=== PATIENT | female | born 1955 | race Caucasian/White ===

== ENCOUNTER 2016-09-17 12:08 | Observation (INO) ==
[2016-09-17] MEDS ORDERED: Aspirin 81 MG TAB.CHEW PO ONE (12:44)
[2016-09-17] MEDS ORDERED: Nitroglycerin 0.4 MG TAB.SUBL SL PRN (12:44)
[2016-09-17 13:27] LABS: Basophils % 0.5 %; Eosinophils # 0.1 K/mcL (0.0-0.6); Hematocrit 42.5 % (35.3-44.9); Hemoglobin 14.1 g/dL (11.5-15.4); Immature Granulocytes % 0.2 % (0-4); Lymphocytes % 33.6 %; Mean Corpuscular HGB Conc 33.2 g/dL (31.6-35.5); Mean Corpuscular Hemoglobin 28.5 pg (28.0-33.3); Mean Corpuscular Volume 85.9 fL (83.0-100.0); Monocytes # 0.5 K/mcL (0.0-1.3); Monocytes % 8.8 %; Neutrophils # 3.3 K/mcL (1.6-8.9); Platelet Count 251 K/mcL (140-400); Red Blood Count 4.95 M/mcL (3.82-4.97); Red Cell Distribution Width 12.9 % (11.5-14.5); Segmented Neutrophils % 54.9 %
--- NOTE | 2016-09-17 13:44 | Emergency Department Note ---
Disposition Clinical Impression: Chest pain Disposition: Admitted As Inpatient Condition: Good Chest Pain HPI - General Chief Complaint: ED Chest Pain Stated Complaint: chest pain Time Seen by Provider: 09/17/16 12:15 Source: patient Limitations: no limitations Vital Signs Reviewed: Yes Nursing Notes Reviewed: Yes - History of Present Illness HPI Narrative: Presents to clinic chest pain that started around 11:00 while in [employer]. Patient describes the pain as a pressure and she states that it is in the left side of her neck and her left shoulder. Currently the pressure chest has resolved but she still has some tingling in her left hand and into her neck. Patient denies shortness of breath denies fevers or chills. Patient denies injury denies prior history of similar symptoms. Patient denies any aggravating alleviating factors associated. Severity scale (1-10): 0 - Related Data Home Medications Medication Instructions Recorded Confirmed Aspirin 04/14/16 Bentyl 04/14/16 04/14/16 Crestor 04/14/16 Previous Rx's Medication Instructions Recorded Benzonatate [Tessalon] 200 mg PO TID PRN #30 capsule 04/14/16 Cephalexin [Keflex] 500 mg PO QID #40 capsule 04/14/16 GuaiFENesin ER [Mucinex] 1,200 mg PO BID #20 tbbp.12hr 04/14/16 Allergies Allergy/AdvReac Type Severity Reaction Status Date / Time prochlorperazine Allergy Anaphylaxis Verified 08/26/15 15:53 [From Compazine] Sulfa (Sulfonamide Allergy Hives Verified 08/26/15 15:53 Antibiotics) All systems ED: reviewed and negative except as stated. Chest Pain PMH - Past Medical History Medical history: Reports: hyperlipidemia, hypertension, other Psychiatric history: Reports: no psych history - Social History Smoking Status: Never smoker Alcohol use: Reports: none Drug use: Reports: none Physical Exam - General Limitations: no limitations General appearance: alert - Head Head exam: atraumatic, normocephalic, normal inspection - Eye Eye exam: Present: normal appearance, PERRL, EOMI - ENT ENT exam: normal exam - Neck Neck exam: Present: normal inspection, full ROM, trachea midline - Chest Chest inspection: Present: normal inspection, symmetric chest wall rise - Respiratory Respiratory exam: Present: normal lung sounds bilaterally - Cardiovascular Cardiovascular exam: Present: regular rate, normal rhythm, normal heart sounds - Abdominal Exam Abdominal exam: Present: soft, Non-Tender. Absent: tenderness, distention, guarding, rebound, rigidity - Extremities Exam Extremities exam: Present: normal inspection, full ROM. Absent: tenderness, pedal edema - Back Exam Back exam: Present: normal inspection, full ROM. Absent: tenderness - Neurological Exam Neurological exam: Present: alert, oriented X3 - Psychiatric Psychiatric exam: Present: normal affect, normal mood - Skin Skin exam: Present: warm, dry, intact, normal color Course Course Narrative: Patient workup has been unremarkable. Discussed this patient with the hospitalist service and will admit patient due to her risk factors. Hospitalist service graciously accepted the patient to the service Vital Signs Temperature 97.3 F L 09/17/16 12:17 Pulse Rate 78 09/17/16 12:17 Respiratory Rate 16 09/17/16 12:17 Blood Pressure 162/92 09/17/16 12:17 O2 Sat by Pulse Oximetry 99 09/17/16 12:17 Temperature 97.3 F L 09/17/16 12:17 Pulse Rate 63 09/17/16 12:56 Respiratory Rate 14 09/17/16 12:56 Blood Pressure 141/84 09/17/16 12:56 O2 Sat by Pulse Oximetry 98 09/17/16 12:56 Oxygen Delivery Oxygen Delivery Room Air Chest Pain - Differential Diagnosis Likely: pneumothorax, stable angina, atypical chest pain, st elevation myocardial infraction - Lab Data Lab results reviewed: Yes I reviewed the patient's lab results. Result diagrams: 09/17/16 13:16 09/17/16 13:16 Lab Results 09/17/16 09/17/16 09/17/16 Range/Units 13:16 13:16 13:16 WBC 6.0 (4.3-11.1) K/mcL RBC 4.95 (3.82-4.97) M/mcL Hgb 14.1 (11.5-15.4) g/dL Hct 42.5 (35.3-44.9) % MCV 85.9 (83.0-100.0) fL MCH 28.5 (28.0-33.3) pg MCHC 33.2 (31.6-35.5) g/dL RDW 12.9 (11.5-14.5) % Plt Count 251 (140-400) K/mcL MPV 9.0 L (9.4-12.4) fL Immature Gran % 0.2 (0-4) % Seg Neutrophils % 54.9 % Lymphocytes % 33.6 % Monocytes % 8.8 % Eosinophils % 2.0 % Basophils % 0.5 % Neutrophils # 3.3 (1.6-8.9) K/mcL Lymphocytes # 2.0 (0.6-4.6) K/mcL Monocytes # 0.5 (0.0-1.3) K/mcL Eosinophils # 0.1 (0.0-0.6) K/mcL Basophils # 0.0 (0.0-0.2) K/mcL APTT 29.1 (26.0-36.0) Seconds Sodium 141 (136-145) mEq/L Potassium 4.3 (3.5-4.5) mEq/L Chloride 112 H (98-109) mEq/L Carbon Dioxide 23 (19-29) mEq/L BUN 17 (7-20) mg/dL Creatinine 0.73 (0.57-1.11) mg/dL Est GFR ( Amer) > 60 (> 60) Est GFR (Non-Af Amer) > 60 (> 60) BUN/Creatinine Ratio 23 (6-26) Glucose 95 (70-99) mg/dL Calculated Osmolality 293 (280-300) Calcium 9.3 (8.6-10.8) mg/dL Total Bilirubin 0.5 (0.2-1.2) mg/dL AST 20 (5-34) Units/L ALT 19 (0-55) Units/L Alkaline Phosphatase 91 (38-126) Units/L Troponin I (0-0.03) ng/mL Serum Total Protein 6.5 (6.0-8.3) g/dL Albumin 4.1 (3.5-5.0) g/dL Globulin 2.4 (2.4-3.5) g/dL Albumin/Globulin Ratio 1.7 (1.1-2.2) 09/17/16 Range/Units 13:16 WBC (4.3-11.1) K/mcL RBC (3.82-4.97) M/mcL Hgb (11.5-15.4) g/dL Hct (35.3-44.9) % MCV (83.0-100.0) fL MCH (28.0-33.3) pg MCHC (31.6-35.5) g/dL RDW (11.5-14.5) % Plt Count (140-400) K/mcL MPV (9.4-12.4) fL Immature Gran % (0-4) % Seg Neutrophils % % Lymphocytes % % Monocytes % % Eosinophils % % Basophils % % Neutrophils # (1.6-8.9) K/mcL Lymphocytes # (0.6-4.6) K/mcL Monocytes # (0.0-1.3) K/mcL Eosinophils # (0.0-0.6) K/mcL Basophils # (0.0-0.2) K/mcL APTT (26.0-36.0) Seconds Sodium (136-145) mEq/L Potassium (3.5-4.5) mEq/L Chloride (98-109) mEq/L Carbon Dioxide (19-29) mEq/L BUN (7-20) mg/dL Creatinine (0.57-1.11) mg/dL Est GFR ( Amer) (> 60) Est GFR (Non-Af Amer) (> 60) BUN/Creatinine Ratio (6-26) Glucose (70-99) mg/dL Calculated Osmolality (280-300) Calcium (8.6-10.8) mg/dL Total Bilirubin (0.2-1.2) mg/dL AST (5-34) Units/L ALT (0-55) Units/L Alkaline Phosphatase (38-126) Units/L Troponin I 0.00 (0-0.03) ng/mL Serum Total Protein (6.0-8.3) g/dL Albumin (3.5-5.0) g/dL Globulin (2.4-3.5) g/dL Albumin/Globulin Ratio (1.1-2.2) - Radiology Data Radiology results reviewed: Yes I reviewed the patient's radiology results. Chest X-Ray 09/17/16 12:43 IMPRESSION: No evidence for acute cardiopulmonary process. D/ / Amish Mathis MD / Amish Mathis MD Interpreting Provider: Amish Mathis MD - EKG Data EKG attestation: Yes I reviewed and interpreted this EKG. EKG shows normal: sinus rhythm Rate: bradycardia Rhythm: NSR
[2016-09-17 13:48] LABS: Alanine Aminotransferase 19 Units/L (0-55); Albumin 4.1 g/dL (3.5-5.0); Albumin/Globulin Ratio 1.7 (1.1-2.2); Alkaline Phosphatase 91 Units/L (38-126); Aspartate Amino Transferase 20 Units/L (5-34); BUN/Creatinine Ratio 23 (6-26); Bilirubin,Total 0.5 mg/dL (0.2-1.2); Blood Urea Nitrogen 17 mg/dL (7-20); Calcium 9.3 mg/dL (8.6-10.8); Carbon Dioxide 23 mEq/L (19-29); Chloride 112 mEq/L (98-109); Globulin 2.4 g/dL (2.4-3.5); Glucose 95 mg/dL (70-99); Osmolality,Calculated 293 (280-300); Potassium 4.3 mEq/L (3.5-4.5); Sodium 141 mEq/L (136-145); Total Protein 6.5 g/dL (6.0-8.3); eGFR For African Americans > 60 (> 60); eGFR For Non-African Americans > 60 (> 60)
[2016-09-17] MEDS ORDERED: *HR* HYDROcodone/Acet 5/325 mg TABLET PO PRN (15:54)
[2016-09-17] MEDS ORDERED: Naloxone 0.4 MG/ML INJ IVP PRN (15:54)
[2016-09-17] MEDS ORDERED: Ondansetron 4 MG/2 ML VIAL IVP PRN (15:54)
[2016-09-17] MEDS ORDERED: Acetaminophen 325 MG TABLET PO PRN (15:54)
--- NOTE | 2016-09-17 18:40 | Internal Med History&Physical ---
Date of Encounter: 09/17/16 Time of Encounter: 18:34 Assessment and Plan (1) Chest pain Current visit: Yes Status: Acute 1 patient experienced midsternal chest pain radiating to neck and back she did take some nitroglycerin which did ease her pain resolved after approximately 15 minutes. Patient is a history of hypertension hyperlipidemia. She did undergo a stress test last year which was inconclusive due to artifact. First cardiac enzymes are negative. We will continue to cycle cardiac troponins. 2 nitroglycerin as needed for chest pain 3 cardiac monitoring EKG 4 oxygen as needed to maintain SPO2 greater than 92% 5 to make patient nothing by mouth after midnight and no caffeine for pharmacological cardiac stress and a.m. 6 continue with aspirin and statin 7 lipid profile Qualifiers: Chest pain type: unspecified Qualified Code(s): R07.9 - Chest pain, unspecified (2) Hyperlipidemia Current visit: Yes Status: Acute 1 we will continue with statin 2 lipid profile Qualifiers: Hyperlipidemia type: unspecified Qualified Code(s): E78.5 - Hyperlipidemia , unspecified (3) HTN (hypertension) Current visit: Yes Status: Acute 1 patient has not been on any antihypertensives. We will start low dose lisinopril Qualifiers: Hypertension type: essential hypertension Qualified Code(s): I10 - Essential (primary) hypertension Internal Medicine - H&P: HPI Chief complaint: Chest pain Admitted From: Emergency Dept Plans for Post Hospital Care: Home History of present illness: Ms. Amezquita is a 61 year old female past history of hypertension hyperlipidemia she began to experience midsternal burning 10 /10 chest pain which radiated to the left side of her neck and to her left shoulder. She states that the pain makes it difficult for her to breathe she did feel nauseated. The pain was aggravated with inspiration. She did take one nitroglycerin which did ease her pain and after approximately 15 minutes the pain resolved on its own. She was brought to the ER for further evaluation. To the records, the patient's vital signs were stable chest x-ray was obtained which showed no acute process. EKG sinus bradycardia with left axis deviation with no significant changes from previous EKG. Lab work is unremarkable first set cardiac troponins were negative. Patient was admitted for further workup and evaluation. Presently patient denies any chest pain or shortness of breath. Lung sounds are clear to auscultation heart sounds with S1-S2 no gallops rubs murmurs clicks noted. She is hemodynamically stable at this time It appears the patient did undergo a stress test proximal one year ago results were inconclusive related to artifact was advised to follow-up with nuclear stress. However patient never did follow- up because she did not experience any more chest pain. Past Med Surg Social Fam HX - Past Medical History Medical history: hyperlipidemia, hypertension Psychiatric history: no psych history - Past Surgical History Surgical History: hysterectomy - Social History Smoking Status: Never smoker Smokeless Tobacco Status: No Alcohol use: none Drug use: none - Family History Mother Hx Family Cardiac Disorders: Yes ([place]) Hx Family Neurologic Disorders: Yes ([place]) Father Hx Family Cardiac Disorders: Yes ([place]) Hx Family Neurologic Disorders: Yes ([place]) Internal Medicine - H&P: Meds Aspirin [Lo-Dose Aspirin EC] 81 mg PO DAILY 09/17/16 [History] Dicyclomine [Bentyl] 20 mg PO BID 09/17/16 [History] Loratadine [Allergy Relief] 10 mg PO DAILY 09/17/16 [History] Rosuvastatin Calcium [Rosuvastatin Calcium] 5 mg PO DAILY 09/17/16 [History] Allergies prochlorperazine [From Compazine] Allergy (Verified 08/26/15 15:53) Anaphylaxis Sulfa (Sulfonamide Antibiotics) Allergy (Verified 08/26/15 15:53) Hives All Systems PM: A 10-system review of systems was performed and is negative for pertinent findings except as documented above in the HPI. - Constitutional Constitutional: no chills, no fever(s), no night sweats - EENT Eyes: no change in vision, no discharge, no pain, no photophobia Ears: no ear discharge, no ear pain, no tinnitus Nose, mouth and throat: nasal congestion, nasal discharge, no neck pain, no sore throat - Cardiovascular Cardiovascular ROS IM: no chest pain, no diaphoresis, no dyspnea, no lightheadedness, no palpitations, no syncope - Respiratory Respiratory: no cough, no dyspnea, no wheezing, no excessive phlegm production - Gastrointestinal Gastrointestinal: no abdominal pain, no diarrhea, no hematemesis, no hematochezia, no melena, no nausea, no vomiting - Genitourinary Genitourinary: no change in urinary stream, no dysuria, no flank pain, no hematuria - Musculoskeletal Musculoskeletal ROS IM: no numbness, no tingling - Integumentary Integumentary IM: no rash, no unusual bruising - Neurological Neurological ROS: no confusion, no convulsions, no focal weakness, no numbness, no tingling, no tremor(s) - Constitutional Vitals: Temp Pulse Resp BP Pulse Ox 97.9 F 58 16 126/78 97 09/17/16 16:36 09/17/16 16:36 09/17/16 16:36 09/17/16 16:36 09/17/16 16:36 General appearance: Present: A&O X 3, answers questions appropriately - Head Head exam: Present: atraumatic, normocephalic - Eye Eye exam: Present: PERRL, conjuntiva pink, sclera anicteric Pupils: Present: PERRL - Neck Neck exam general surgery: Present: supple, trachea midline. Absent: lymphadenopathy - Respiratory Respiratory exam: Present: CTAB. Absent: accessory muscle use, rales, rhonchi, wheezes - Cardiovascular Cardiovascular exam: Present: RRR, +S1, +S2. Absent: diastolic murmur, gallop, rubs, systolic murmur - GI/Abdominal GI/Abdominal exam: Present: normal bowel sounds, soft, no peritoneal signs. Absent: distended, tenderness - Extremities Exam Extremities exam: Present: warm, radial pulses palpable and symetrical. Absent : calf tenderness, cyanotic, pedal edema Internal Med - H&P Results - Labs CBC & Chem 7: 09/17/16 13:16 09/17/16 13:16 - EKG Data EKG shows normal: sinus rhythm Rate: bradycardia - EKG Data Prior EKG available for review: yes When compared to previous EKG: there is no significant change - Diagnostic Studies Other Images Additional comments: Chest X-Ray 09/17/16 12:43 IMPRESSION: No evidence for acute cardiopulmonary process. D/ / Amish Mathis MD / Amish Mathis MD Interpreting Provider: Amish Mathis MD - VTE Reasons for not Prescribing Prophylaxis: Treatment not Indicated - Low risk for VTE
[2016-09-18 00:40] LABS: Basophils % 0.4 %; Eosinophils # 0.2 K/mcL (0.0-0.6); Eosinophils % 2.8 %; Hemoglobin 13.1 g/dL (11.5-15.4); Immature Granulocytes % 0.3 % (0-4); Immature Platelets 1.2 % (1.1-6.1); Lymphocytes # 2.6 K/mcL (0.6-4.6); Lymphocytes % 38.9 %; Mean Corpuscular HGB Conc 32.8 g/dL (31.6-35.5); Mean Corpuscular Hemoglobin 28.6 pg (28.0-33.3); Mean Corpuscular Volume 87.3 fL (83.0-100.0); Mean Platelet Volume 9.3 fL (9.4-12.4); Monocytes # 0.6 K/mcL (0.0-1.3); Monocytes % 8.5 %; Neutrophils # 3.3 K/mcL (1.6-8.9); Platelet Count 255 K/mcL (140-400); Red Blood Count 4.58 M/mcL (3.82-4.97); Red Cell Distribution Width 12.8 % (11.5-14.5); Segmented Neutrophils % 49.1 %
[2016-09-18 00:58] LABS: BUN/Creatinine Ratio 23 (6-26); Blood Urea Nitrogen 19 mg/dL (7-20); Calcium 8.8 mg/dL (8.6-10.8); Carbon Dioxide 22 mEq/L (19-29); Chloride 111 mEq/L (98-109); Glucose 99 mg/dL (70-99); Osmolality,Calculated 292 (280-300); Sodium 140 mEq/L (136-145); eGFR For African Americans > 60 (> 60); eGFR For Non-African Americans > 60 (> 60)
[2016-09-18] MEDS ORDERED: Regadenoson 0.4 MG/5 ML SYRINGE IVP ONE (06:41)
--- NOTE | 2016-09-18 07:01 | Electrocardiograph Report ---
[place] [id number] Test Date: 2016-09-17 Pat Name: Connie Amezquita Department: 103 Room: 3B48 Gender: F Category Specialist: GREGORY : 1955 Requested By: Willam Snider Order Number: [id number] Reading MD: Dani Garvey MD Measurements Intervals [place] Rate: 57 P: -1 WA: 143 QRS: -39 QRSD: 89 T: 48 QT: 419 QTc: 413 Interpretive Statements SINUS BRADYCARDIA MARKED LEFT AXIS DEVIATION Poor R wave progression Electronically Signed On 09-18-2016 6:59:35 EDT by Dani Garvey MD
[2016-09-18] MEDS ORDERED: Aspirin Enteric Coated 81 MG Tablet PO SCH (09:00)
--- NOTE | 2016-09-18 10:27 | Nuclear Medicine Stress Report ---
Exercise Nuclear Stress Name: Connie Amezquita Date of Study: 09/18/2016 Date: 1955 Ht: 61.0 in Medical Record#: [id number] Age: 61 Wt: 155.0 lb Gender: Female Order #: [id number] Location: [facility] Room: [facility] Supervising Provider: Nadja Alexander CNP Reading Physician: Dani Garvey MD, [facility] Ordering Physician: Christina Mcdonough CNP Primary Care Physician: Jesse Keyes MD Stress Technologist: Sonia Hui RRT,[facility] Pattern Marking Supervisor: Bora Bhandari Indications: Chest Pain Impression: Perfusion imaging was negative for ischemia or infarct. SDS - 0 Exercise ECG was negative for ischemia, PVC during exercise and bigeminy during recovery Exercise capacity was average. Normal hemodynamic response. Patient had no chest pain with stress. Gated EF = >70%. The LV is not dilated. There is no evidence of TID. No high risk stress findings identified on this study History: Hypercholesteremia Stress Test Summary: Stress Test Type: Treadmill Protocol: Dani Baseline Information: Initial Heart Rate: 74 Blood Pressure: 142/88 Stress Information: Stress Time: 9 min 27 sec Test Terminated Due to (primary): Fatigue Maximum Blood Pressure: 176/80 Maximum Heart Rate: 156 Percent Maximum Heart Rate Achieved: 98 Double Product: [id number] METS Reached: 10.1 Symptoms: Fatigue Nuclear Summary: SPECT myocardial perfusion imaging using Tc99m Sestamibi given intravenously was performed at rest and following cardiac stress testing. The resting images were obtained following initial dose of 11.5 mCi. Following stress an additional dose of 35 mCi was given at peak exercise or 30 seconds post regadenoson infusion. Medication Given: Time Medication Dose Units Route Findings: Stress Note * Resting ECG demonstrated normal sinus rhythm. * Exercise ECG is negative for ischemia. * Occasional PVCs noted during stress. * Bigeminy noted during stress. * The exercise capacity was average. * Patient had no chest pain during stress. Hemodynamic responses * Normal hemodynamic responses to exercise. Study Quality * Study quality is average. Gated EF > 70% * Gated EF > 70%. Left Ventricle * The left ventricle is not dilated. NORMALS * Normal wall motion. * Normal segmental perfusion in stress. * All other segmental perfusion normal in rest. PERFUSION * PERFUSION Apical Perfusion Rest * The apex segment shows a moderate reduction in perfusion. TID * No evidence of transient ischemic dilatation. Updated by Dani Garvey MD, FACC on 09/18/2016 10:22:34 AM electronically signed on 09/18/2016 10:23:37 AM with status of Final
[2016-09-18 15:38] VITALS: BP 144/81
--- NOTE | 2016-09-18 16:16 | ECHO - Doppler Report ---
Echocardiogram Name: Connie Amezquita Date of Study: 09/18/2016 Date: 1955 Ht: 61.0 in Medical Record#: [id number] Age: 61 Wt: 155.0 lb Gender: Female BSA: 1.7 Order #: [id number] Location: [facility] Room #: [id number] Reading Physician: Dani Garvey MD, [facility] Retail Pharmacy Technician: Torres Hawkins Ordering Physician: Guerita Rubio CNP Primary Physician: Jesse Keyes MD Indications: Chest pain Impressions: LVEF 65-70%. Mild left ventricular diastolic dysfunction. No pulmonary hypertension. No significant valvular dysfunction. Left Ventricular Wall Motion: Rest Echo Findings The apex, apical inferior, mid inferior, basal inferior, apical anterior, mid anterior, basal anterior, apical septal, mid inferior septal, basal inferior septal, apical lateral, mid anterior lateral, basal anterior lateral, mid anterior septal, mid inferior lateral, basal anterior septal and basal inferior lateral farah were hyperkinetic. Findings: Study Quality * Technically adequate exam. Right Ventricle * Normal right ventricular structure and function. Left Atrium * Normal left atrial size. Right Atrium * Normal right atrial size. Interatrial Septum * No evidence of PFO by color Doppler. Aorta * Normally sized aortic root. Pericardium * The pericardium appears normal. ECG Findings * Normal sinus rhythm. Left Ventricle * Normal LV chamber size, wall thickness and function. * Mild left ventricular diastolic dysfunction. * LVEF 65-70%. Mitral Valve * Normal mitral valve structure. * Mild mitral regurgitation. * No mitral stenosis. Tricuspid Valve * Trace tricuspid regurgitation. * No tricuspid stenosis. * Estimated RVSP is 31 mmHg. * Estimated RA pressure is 3-5 mmHg. * No pulmonary hypertension. * Tricuspid valve not well visualized. Aortic Valve * No aortic regurgitation. * No aortic stenosis. * Aortic valve not well visualized. Pulmonic Valve * Pulmonic valve not well visualized. * No pulmonic regurgitation. * No pulmonic stenosis. History Hypertension Hypercholesteremia Family History of CAD Measurements: BP: 121/ 76 2D Normal Values RVIDd: 1.70 cm <2.7 cm IVSd: .80 cm 0.6 - 1.0 cm LVIDd: 4.20 cm 3.7 - 5.6 cm LVPWd: .80 cm 0.6 - 1.1 cm LVIDs: 3.50 cm 1.5 - 3.6 cm AO: 2.50 cm < 4.0 cm LA: 3.90 cm 2.0 - 4.0cm %FS: 16.70 cm >25 % LA volume: 44 Mitral Valve Peak E:.60 m/sec Peak A:.63 m/sec E/A Ratio:1 Peak E' Lat Robert:9.94 cm/s Peak E' Med Robert:7.41 cm/s E/E' Lat Ratio:6.1 E/E' Med Ratio:8.1 Tricuspid Valve TV Regurg Peak Grad: 31.00mmHg TV Regurg Peak Robert: 2.77m/sec Updated by Dani Garvey MD, FACC on 09/18/2016 4:11:17 PM electronically signed on 09/18/2016 4:12:22 PM with status of Final Wall Motion Fernandes: 1=Normal, 2=Hypokinesis, 3=Akinesis, 4=Dyskinesis, 5=Aneurysmal, 6=Hyperkinetic, X=Not Visualized (Blank)=Missing
--- NOTE | 2016-09-18 16:48 | Discharge Summary ---
Date of Encounter: 09/18/16 Time of Encounter: 16:00 - Discharge Diagnosis (1) Chest pain Priority: Primary Status: Resolved Comments: Patient denied chest pain or shortness of breath throughout this admission. Troponins negative. Stress is negative. ACS ruled out. Qualifiers: Chest pain type: unspecified Qualified Code(s): R07.9 - Chest pain, unspecified (2) Hyperlipidemia Priority: Secondary Status: Chronic Comments: Recommend continue statin and low-cholesterol diet Qualifiers: Hyperlipidemia type: unspecified Qualified Code(s): E78.5 - Hyperlipidemia , unspecified (3) HTN (hypertension) Priority: Secondary Status: Chronic Comments: Patient is not on any antihypertensive medications she was borderline hypertensive throughout this admission was started on low-dose lisinopril. Daily blood pressure checks at home, keep a log, and follow-up outpatient Qualifiers: Hypertension type: essential hypertension Qualified Code(s): I10 - Essential (primary) hypertension - Discharge Medications Prescriptions: Lisinopril [Zestril] 2.5 mg PO DAILY #15 tablet Home Medications: Aspirin [Lo-Dose Aspirin EC] 81 mg PO DAILY 09/17/16 [History] Dicyclomine [Bentyl] 20 mg PO BID 09/17/16 [History] Loratadine [Allergy Relief] 10 mg PO DAILY 09/17/16 [History] Rosuvastatin Calcium 5 mg PO DAILY 09/17/16 [History] Lisinopril [Zestril] 2.5 mg PO DAILY #15 tablet 09/18/16 [Rx] Allergies/Adverse Reactions: Allergies prochlorperazine [From Compazine] Allergy (Verified 08/26/15 15:53) Anaphylaxis Sulfa (Sulfonamide Antibiotics) Allergy (Verified 08/26/15 15:53) Hives Procedures/tests Complete & Pending: Procedures Performed prior 72 hours Category Date Time Status NM hope perf SPECT multi [NM] Routine Exams 09/17/16 05:54 Taken EV echocardiogram Routine Y 09/18/16 18:32 Completed SP exercise nuclear stress Routine Y 09/17/16 18:31 Completed Date of admission: 09/17/16 15:05 Primary care physician: Jesse Keyes MD Discharging clinician: Christina Mcdonough Anticipated date of discharge: 09/18/16 - Patient Status Disposition: Home, Self-Care Condition: Good Functional capacity at discharge: independent ambulation Overall status at discharge: patient is back to baseline - Discharge Instructions Follow Up With: Jesse Keyes MD [Primary Care Provider] - 09/27/16 1:00 pm Additional Instructions: Follow-up with primary care provider as scheduled, check blood pressure daily and keep a log - Diet and Activity Activity: increase activity as tolerated Diet: low fat, low cholesterol, low salt diet Hospital course: Ms. Amezquita is a 61 year old female with past medical history hypertension and hyperlipidemia presented to the emergency department chief complaint mid sternally located chest pain described as burning and radiating to the left side of her neck and left shoulder. Patient stating she had difficulty catching her breath and felt nauseated. Patient stating the pain was aggravated with inspiration. She took one nitroglycerin tablet which did ease her pain and approximately 15 minutes later the pain resolved on its own. Workup in the emergency department unremarkable. Chest x-ray negative. ECG revealing sinus bradycardia with left axis deviation without significant changes from prior EKGs. Patient was admitted to the hospitalist service for further evaluation and management. Troponins are negative. Exercise Nuclear stress test negative for ischemia or infarct and revealed an ejection fraction of 70%. Echocardiogram unremarkable. Patient denied chest pain or shortness of breath throughout this admission. Acute coronary syndrome ruled out. Patient stating that she is dealing with a lot of increased stress at home and thinks this may have been a causative factor for pain. She is also started on blood pressure medication during this visit she was instructed to check her blood pressure daily at home and follow up outpatient. She was discharged home in stable condition with close outpatient follow-up recommended. ITS Impressions Chest X-Ray 09/17/16 12:43 IMPRESSION: No evidence for acute cardiopulmonary process. D/ / Amish Mathis MD / Amish Mathis MD Interpreting Provider: Amish Mathis MD Echocardiogram impressions: LVEF 65-70%. Mild left ventricular diastolic dysfunction. No pulmonary hypertension. No significant valvular dysfunction. Exercise nuclear stress test impression: Perfusion imaging was negative for ischemia or infarct. SDS-0. Exercise ECG was negative for ischemia, PVC during exercise and bigeminy during recovery. Exercise capacity was average. Normal hemodynamic response. Patient had no chest pain with stress. Gait ejection fraction greater than 70%. The LV is not dilated. There is no evidence of TID. No high risk stress findings identified on the study. - Time Spent with Patient Total time spent providing and/or coordinating discharge services: - Constitutional Vitals: Temp Pulse Resp BP Pulse Ox 97.6 F 73 14 144/81 95 09/18/16 15:35 09/18/16 15:35 09/18/16 15:35 09/18/16 15:35 09/18/16 15:35 General appearance: Present: A&O X 3, pleasant, no acute distress, answers questions appropriately - Head Head exam: Present: atraumatic, normocephalic - Eye Eye exam: Present: PERRL, conjuntiva pink, sclera anicteric Pupils: Present: PERRL - Neck Neck exam general surgery: Present: supple, trachea midline. Absent: lymphadenopathy - Respiratory Respiratory exam: Present: CTAB. Absent: accessory muscle use, rales, respiratory distress, rhonchi, wheezes - Cardiovascular Cardiovascular exam: Present: RRR, +S1, +S2. Absent: diastolic murmur, gallop, rubs, systolic murmur - GI/Abdominal GI/Abdominal exam: Present: normal bowel sounds, soft, no peritoneal signs. Absent: distended, tenderness - Extremities Exam Extremities exam: Present: warm, radial pulses palpable and symetrical. Absent : calf tenderness, cyanotic, pedal edema - Neurological Exam Neurological exam: Present: alert, CN II-XII intact, normal gait, oriented X3, no focal deficits, strengths equal and symetr throughout. Absent: pronater drift, facial droop, speech deficit - Skin Skin exam: Present: dry, intact, normal color, warm - VTE Reasons for not Prescribing Prophylaxis: Treatment not Indicated - Low risk for VTE
== END 2016-09-18 17:10 | disposition home or self-care (01) ==
LOC: EMEROO 12:08 → 3BNU 12:08
PROVIDERS: ADMIT Nurse Practitioner Acute Care; ATTEND Nurse Practitioner Family